=== PATIENT | female | born 1960 | race Caucasian/White ===

== ENCOUNTER → 2017-02-18 | Outpatient (CLI) | payer OTHER | END | disposition home or self-care (01) | LOC: RAD 10:05 | DX: M51.36 Other intervertebral disc degeneration, lumbar region (principal); M43.16 Spondylolisthesis, lumbar region; M12.88 Other specific arthropathies, not elsewhere classified, other specified site; M25.562 Pain in left knee | CPT/HCPCS: 72100; 73560 ==